=== PATIENT | female | born 1955 | race Caucasian/White ===

== ENCOUNTER 2023-12-27 06:20 | Observation (INO) | payer OTHER ==
[2023-12-27 06:58] LABS: Absolute Eosinophils 0.1 K/uL (0-0.5); Absolute Lymphocytes (CBC) 2.7 K/uL (0.7-4.9); Absolute Monocytes 0.9 K/uL (0.1-1.3); Absolute Neutrophil 5.5 K/uL (1.8-8.0); Basophils % 0.4 % (0-1.3); Eosinophils % 0.9 % (0-4.4); Hematocrit 37.6 % (36.0-45.0); Hemoglobin 12.7 g/dL (12.0-15.0); Lymphocytes % 29.6 % (15.3-44.8); MCH 29.4 pg (27.0-35.0); MCHC 33.7 g/dL (32.0-36.0); MCV 87.3 fL (80-100); MPV 8.7 fL (7.6-11.3); Monocytes % 9.5 % (3.3-12.3); Neutrophils % 59.6 % (41.7-73.7); Platelets 233 thou/uL (152-406); RBC Red Blood Cell Count 4.31 M/uL (3.86-4.86); Red Cell Distribution Width 14.2 % (12.1-15.2)
[2023-12-27 07:05] LABS: PT Prothrombin Time 10.4 SECONDS (9.4-12.5); Protime INR 0.93
[2023-12-27] MEDS ORDERED: CEFAZOLIN SODIUM 2 GM/VIAL ONE (07:14)
[2023-12-27] MEDS ORDERED: TDAP (DIPHTH,PERTUSS(ACELL),TET VAC) 0.5 ML VIAL IMVAC ONE (07:14)
[2023-12-27] MEDS ORDERED: NA CHLORIDE 0.9% 1,000 ML ONE (07:14)
[2023-12-27 07:18] LABS: ALT/SGPT 31 U/L (13-56); AST/SGOT 33 U/L (15-37); Albumin 3.8 g/dL (3.4-5.0); Albumin/Globulin Ratio 1.1 (1.1-1.8); Alkaline Phosphatase 101 U/L (45-117); Anion Gap 8.6 mEq/L (5.0-15.0); BUN Blood Urea Nitrogen 13 mg/dL (7-18); Bicarbonate 27 mEq/L (21-32); Bilirubin Direct < 0.2 mg/dL (0-0.2); Bilirubin Indirect, Calculated 0.2 mg/dL (0.2-0.8); Bilirubin Total 0.4 mg/dL (0.2-1.0); Globulin 3.5 g/dL (2.3-3.5); Glomerular Filtration Rate 79 ml/min (=/>90); Glucose Level 147 mg/dL (74-106); Lipase 59 U/L (13-75); Magnesium 2.1 mg/dL (1.6-2.4); NT PRO-BNP 87 pg/mL (<125); Potassium 3.6 mEq/L (3.5-5.1); Protein, Total 7.3 g/dL (6.4-8.2); Sodium Level 140 mEq/L (136-145); Troponin High Sensitivity 6.5 pg/mL (<58.9)
--- NOTE | 2023-12-27 07:36 | RAD REPORT ---
EXAMINATION: CT HEAD WITHOUT CONTRAST CT CERVICAL SPINE WITHOUT CONTRAST CLINICAL INDICATION: Head and neck injury status post fall. Head and neck pain TECHNIQUE: Axial CT images from the skull base to the vertex without intravenous contrast. Axial CT i mages through the cervical spine were obtained without intravenous contrast. Sagittal and coronal reformatted images were created from the data set. Coronal and sagittal reformatted images were creat ed from the data set. One or more of the following dose reduction techniques were used: Automated exposure control, adjustment of the mA and/or kV according to patient size, and/or iterative reconstr uction. Unless otherwise specified, incidental findings do not require dedicated imaging follow-up. [id number]. Comparison: none FINDINGS: Posterior scalp hematoma. Intracranial bleed not noted. Ventricles are normal in caliber. No significant hypodensity within the brain No extra-axial fluid collection. No fluid within the sinuses/mastoids No fracture or dislocation is seen involving the cervical spine. IMPRESSION: No acute intracranial abnormality noted A cervical fracture is not seen. 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
--- NOTE | 2023-12-27 07:46 | EDPHYS ---
Physician Documentation [facility] Name: Yissel Simon Age: 68 yrs Sex: Female : 1955 Arrival Date: 12/27/2023 Time: 06:20 Bed 7 Private MD: ED Physician Franck Corona HPI: 12/26 06:51 This 68 yrs old Female presents to ER via EMS with complaints of Fall Injury. erin 06:51 Details of fall: The patient fell from a height, down approximately 10 stairs. Onset: erin The symptoms/episode began/occurred this morning. Associated injuries: The patient sustained injury to the head, neck injury. Severity of symptoms: At their worst the symptoms were moderate, in the emergency department the symptoms are unchanged. The patient has not experienced similar symptoms in the past. Historical: - Allergies: 06:24 No Known Allergies; bm8 - Home Meds: 06:24 omeprazole 20 mg Oral capsule,delayed release (e.c.) 2 times per day [Active]; bm8 irbesartan-hydrochlorothiazide 150-12.5 mg oral tablet 1 tab daily [Active]; loratadine 10 mg oral Tablet,disintegrating 1 tab daily [Active]; clobetasol 0.05 % Topical cream 1 application daily [Active]; calcipotriene 0.005 % topical foam daily [Active]; simvastatin 40 mg Oral tablet 1 tab daily [Active]; - PMHx: 06:24 Hypertensive disorder; HLD; Gerd; bm8 - Immunization history:: Adult Immunizations up to date. - Infectious Disease History:: Denies. - Social history:: Smoking status: Patient denies any tobacco usage or history of. ROS: 06:52 Constitutional: Negative for fever, chills, and weight loss, Eyes: Negative for injury, erin pain, redness, and discharge, ENT: Negative for injury, pain, and discharge, Neck: Negative for injury, pain, and swelling, Respiratory: Negative for shortness of breath, cough, wheezing, and pleuritic chest pain, Abdomen/GI: Negative for abdominal pain, nausea, vomiting, diarrhea, and constipation, : Negative for injury, bleeding, discharge, and swelling, MS/Extremity: Negative for injury and deformity, Allergy/Immunology: Negative for hives, rash, and allergies, Endocrine: Negative for neck swelling, polydipsia, polyuria, polyphagia, and marked weight changes, Hematologic/Lymphatic: Negative for swollen nodes, abnormal bleeding, and unusual bruising, 06:52 Cardiovascular: Positive for chest pain, 06:52 Respiratory: Positive for shortness of breath, 06:52 Abdomen/GI: Negative for abdominal pain, 06:52 Neuro: Positive for dizziness, headache, large posterior scalp laceration, Exam: 06:52 Constitutional: This is a well developed, well nourished patient who is awake, alert, erin and in no acute distress. Eyes: Pupils equal round and reactive to light, extra-ocular motions intact. Lids and lashes normal. Conjunctiva and sclera are non-icteric and not injected. Cornea within normal limits. Periorbital areas with no swelling, redness, or edema. ENT: Nares patent. No nasal discharge, no septal abnormalities noted. Tympanic membranes are normal and external auditory canals are clear. Oropharynx with no redness, swelling, or masses, exudates, or evidence of obstruction, uvula midline. Mucous membranes moist. Neck: Trachea midline, no thyromegaly or masses palpated, and no cervical lymphadenopathy. Supple, full range of motion without nuchal rigidity, or vertebral point tenderness. No Meningismus. Chest/axilla: Normal chest wall appearance and motion. Nontender with no deformity. No lesions are appreciated. Cardiovascular: Regular rate and rhythm with a normal S1 and S2. No gallops, murmurs, or rubs. Normal PMI, no JVD. No pulse deficits. Respiratory: Lungs have equal breath sounds bilaterally, clear to auscultation and percussion. No rales, rhonchi or wheezes noted. No increased work of breathing, no retractions or nasal flaring. Abdomen/GI: Soft, non-tender, with normal bowel sounds. No distension or tympany. No guarding or rebound. No evidence of tenderness throughout. Back: No spinal tenderness. No costovertebral tenderness. Full range of motion. Neuro: Awake and alert, GCS 15, oriented to person, place, time, and situation. Cranial nerves II-XII grossly intact. Motor strength 5/5 in all extremities. Sensory grossly intact. Cerebellar exam normal. Normal gait. Psych: Awake, alert, with orientation to person, place and time. Behavior, mood, and affect are within normal limits. 06:52 Head/face: Noted is contusion, a laceration(s), that is deep, 12 cm(s), swelling, that is moderate, of the left side of the back of head, left occipital area, left base of the skull, right side of the back of head, right occipital area and right base of the skull, 06:52 Musculoskeletal/extremity: Extremities: noted in the right arm and left arm: contusion, decreased ROM, swelling, ROM: no acute changes, Circulation is intact in all extremities. Sensation intact. Compartment Syndrome exam of affected extremity: is normal. 06:58 ECG was reviewed by the Attending Physician. [facility] Vital Signs: 06:22 BP 130 / 80; Pulse 80; Resp 18; Temp 98.1; Pulse Ox 98% ; Weight 72.57 kg; Height 5 ft. bm8 5 in. ; Pain 5/10; 07:21 BP 153 / 92; Pulse 89; Resp 16; Pulse Ox 99% on R/A; hb 10:13 BP 131 / 83; Pulse 88; Resp 15; Pulse Ox 99% on R/A; hb 06:22 Body Mass Index 26.63 (72.57 kg, 165.1 cm) bm8 06:22 Pain Scale: Adult bm8 Theresa Coma Score: 06:33 Eye Response: spontaneous(4). Motor Response: obeys commands(6). Verbal Response: bm oriented(5). Total: 15. 06:55 Eye Response: spontaneous(4). Motor Response: obeys commands(6). Verbal Response: [facility] oriented(5). Total: 15. Trauma Score (Adult): 10:13 Eye Response: spontaneous(1); Verbal Response: oriented(1); Motor Response: obeys hb commands(2); Systolic BP: > 89 mm Hg(4); Respiratory Rate: 10 to 29 per min(4); Theresa Score: 15; Trauma Score: 12 Laceration: 07:30 Wound Repair of 12cm ( 4.7in ) subcutaneous laceration to right side of the back of [facility] head. Irregularly shaped.. Skin/tissue flap noted.. Distal neuro/vascular/tendon intact. Anesthesia: Local anesthetic administered with 12 mls of 1% lidocaine w/ Epi. Wound prep: Moderate cleansing with betadine by il, Copious irrigation. Skin closed with 15 KEKE Sadler using staple gun. Dressed with pressure dressing, non-adherent dressing. Patient tolerated well. MDM: 06:36 Medical Screening Exam initiated erin 06:55 Differential diagnosis: Contusion of Hematoma on Laceration of Intracranial bleed- [facility] subdural, epidural, intracerebral, Concussion without LOC. cerebral contusion, closed fracture, contusion. Differential diagnosis: abrasion, closed head injury, contusion, fracture, laceration, multiple trauma, sprain, strain. Data reviewed: vital signs, nurses notes, EMS record, lab test result(s), EKG, radiologic studies, CT scan, plain films. Consideration of Admission/Observation Escalation of care including admission/observation considered. Independent interpretation of the following test(s) in the Emergency Department EKG: See my EKG interpretation above. 12/26 06:39 Order name: Basic Metabolic Panel; Complete Time: 07:28 [facility] 12/26 06:39 Order name: CBC with Diff; Complete Time: 07:28 [facility] 12/26 06:39 Order name: LFT's; Complete Time: 07:28 [facility] 12/26 06:39 Order name: Magnesium; Complete Time: 07:28 [facility] 12/26 06:39 Order name: NT PRO-BNP; Complete Time: 07:28 [facility] 12/26 06:39 Order name: PT-INR; Complete Time: 07:28 [facility] 12/26 06:39 Order name: Troponin HS; Complete Time: 07:28 [facility] 12/26 06:39 Order name: Lipase; Complete Time: 07:28 [facility] 12/26 06:39 Order name: Urinalysis w/ reflexes [facility] 12/26 08:56 Order name: Hematocrit [facility] 12/26 08:56 Order name: Hemoglobin [facility] 12/26 09:46 Order name: CBC with Automated Diff [facility] 12/26 09:46 Order name: CBC with Automated Diff [facility] 12/26 09:46 Order name: Comprehensive Metabolic Panel [facility] 12/26 09:46 Order name: Comprehensive Metabolic Panel [facility] 12/26 06:39 Order name: XRAY Chest (1 view); Complete Time: 07:48 [facility] 12/26 06:39 Order name: CT Head C Spine; Complete Time: 07:39 [facility] 12/26 06:39 Order name: CT Chest, Abdomen, Pelvis - W/Contrast; Complete Time: 07:48 [facility] 12/26 06:39 Order name: Forearm Right XRAY; Complete Time: 07:48 [facility] 12/26 06:39 Order name: Elbow Left 3 View XRAY 12/26 07:53 Order name: INCENTIVE SPIROMETRY 12/26 06:39 Order name: EKG; Complete Time: 06:39 [facility] 12/26 09:46 Order name: CONS Physician Consult EDMS 12/26 06:39 Order name: Cardiac monitoring; Complete Time: 06:46 12/26 06:39 Order name: EKG - Nurse/Tech; Complete Time: 06:46 [facility] 12/26 06:39 Order name: IV Saline Lock; Complete Time: 06:44 [facility] 12/26 06:39 Order name: Labs collected and sent; Complete Time: 06:44 [facility] 12/26 06:39 Order name: O2 Per Protocol; Complete Time: 06:44 [facility] 12/26 06:39 Order name: O2 Sat Monitoring; Complete Time: 06:44 [facility] 12/26 06:39 Order name: Dressing - Wound; Complete Time: 06:42 [facility] 12/26 06:39 Order name: Gloves, Sterile; Complete Time: 06:42 [facility] 12/26 06:39 Order name: Setup Suture Tray; Complete Time: 06:42 [facility] 12/26 06:39 Order name: Cervical Collar; Complete Time: 06:46 [facility] 12/26 07:53 Order name: Wound Care; Complete Time: 08:10 [facility] 12/26 07:53 Order name: Ice pack; Complete Time: 08:10 [facility] EC:58 Rate is 85 beats/min. Rhythm is regular. QRS [place] is Normal. SC interval is normal. QRS erin interval is normal. QT interval is normal. No Q waves. T waves are Normal. No ST changes noted. Clinical impression: Normal ECG and No evidence of ischemia. Interpreted by me. Reviewed by me. Administered Medications: 06:42 Drug: Lidocaine-Epinephrine Infiltration -1%: (1:100,000) 10 ml 20 ml Infiltration lg3 once; to bedside Volume: 20 ml; Route: Infiltration; 07:15 Drug: Boostrix Tdap IM 0.5 ml IM once; as a single dose Route: IM; Site: right deltoid; bp 15:45 Follow up: Response: No adverse reaction bp 07:15 Drug: ceFAZolin IVPB 2 grams IVPB once over 30 mins; (mix in 100 mL NS) Route: IVPB; bp Infused Over: 30 mins; Site: right antecubital; 15:45 Follow up: IV Status: Completed infusion bp 07:15 Drug: NS 0.9% IV 1000 ml IV at 1000 ml once; to be given as a bolus over 60 minutes bp Route: IV; Rate: 1000 ml; Site: right antecubital; 15:45 Follow up: IV Status: Completed infusion; IV Intake: 1000ml bp 08:09 Drug: fentaNYL (PF) IVP 25 mcg IVP once Route: IVP; Site: right antecubital; bp 15:45 Follow up: Response: No adverse reaction bp 08:09 Drug: Ondansetron IVP 4 mg IVP once; over 2 minutes Route: IVP; Site: right antecubital;bp 15:45 Follow up: Response: No adverse reaction bp 08:10 Drug: Mupirocin Topical Ointment 2 % 1 application Topical once Route: Topical; Site: bp affected area; 08:10 Drug: fentaNYL (PF) IVP 25 mcg IVP once Route: IVP; Site: right antecubital; bp 15:45 Follow up: Response: No adverse reaction bp Disposition Summary: 12/27/23 07:45 Hospitalization Ordered Notes: Hospitalization Status: Inpatient Admission erin Provider: Jc Malik cha Condition: Fair erin Problem: new erin Symptoms: have improved erin Bed/Room Type: Standard erin Location: Telemetry/MedSurg (Inpatient)(12/27/23 15:23) bd Room Assignment: 222(12/27/23 15:23) bd Diagnosis - Fall (on) (from) other stairs and steps - 10 erin - Laceration without foreign body of other part of head - SCALP , 12 CM erin - Contusion of forearm - HEMATOMA erin - Contusion of left elbow erin - Strain of muscle and tendon of front wall of thorax erin - Strain of muscle and tendon of back wall of thorax erin - Other injury of muscle and tendon of back wall of thorax erin - Low back pain erin Forms: - Medication Reconciliation Form erin - SBAR form erin - Leadership Thank You Letter erin Signatures: Dispatcher [employer] EDMirian Gaffney Corey, MD MD cha Baxter, Heather, RN RN Nino Andre RN RN bp Able, Lacie, RN RN 3 Joshua Leiva, RN RN bm8 Corrections: (The following items were deleted from the chart) 06:40 06:39 BASIC METABOLIC PANEL+C.LAB.BRZ ordered. EDMS EDMS 06:40 06:39 CBC+H.LAB.BRZ ordered. EDMS EDMS 06:40 06:39 HEPATIC FUNCTION+C.LAB.BRZ ordered. EDMS EDMS 06:40 06:39 MAGNESIUM+C.LAB.BRZ ordered. EDMS EDMS 06:40 06:39 PROBNP+C.LAB.BRZ ordered. EDMS EDMS 06:40 06:39 PROTIME (+INR)+COAG.LAB.BRZ ordered. EDMS EDMS 06:40 06:39 Troponin High Sensitivity+C.LAB.BRZ ordered. EDMS EDMS 06:40 06:39 LIPASE+C.LAB.BRZ ordered. EDMS EDMS 06:40 06:39 Urinalysis+U.LAB.BRZ ordered. EDMS EDMS 10:14 07:45 Telemetry/MedSurg (observation) erin hb 10:14 07:45 erin hb 15:23 10:14 [facility] ER HOLD hb bd 15:23 10:14 ERHOLD- hb bd
--- NOTE | 2023-12-27 07:46 | RAD REPORT ---
EXAM: CT CHEST, ABDOMEN AND PELVIS WITHOUT CONTRAST CLINICAL INDICATION: Chest and abdominal pain status post fall TECHNIQUE: CT chest, abdomen and pelvis was performed, with 100 cc Isovue-300 IV contrast, as per de partment protocol. Axial, sagittal and coronal reconstructions were obtained. One or more of the following dose reduction techniques were used: Automated exposure control, adjustment of the mA and/o r kV according to the patient size, and/or iterative reconstruction. Unless otherwise specified, incidental findings do not require dedicated imaging follow-up. [id number]. Oral contrast not given. This limits evaluation of the bowel. COMPARISON: None FINDINGS: A pulmonary contusion not seen. No mediastinal hematoma noted No pleural effusion.. No pericardial effusion Old fracture sternum. Liver, spleen, pancreas, adrenals, kidneys and bladder do not demonstrate any acute traumatic injury. There is no evidence of diverticulitis Ill-defined hematoma subcutaneous tissues right flank. Small areas of increased density indicate acti ve bleeding. IMPRESSION: Ill-defined hematoma subcutaneous tissues right flank. Small areas of increased density indicate acti ve bleeding.
--- NOTE | 2023-12-27 07:46 | RAD REPORT ---
Procedure: Chest Single View HISTORY: Chest pain COMPARISON: none FINDINGS: The lungs appear clear of acute infiltrate. No significant pleural effusion noted. The heart is normal size. IMPRESSION: No acute abnormality is displayed.
--- NOTE | 2023-12-27 07:46 | ER ---
Nurse's Notes [facility] Name: Yissel Simon Age: 68 yrs Sex: Female : 1955 Arrival Date: 12/27/2023 Time: 06:20 Bed 7 Private MD: Diagnosis: Fall (on) (from) other stairs and steps-10;Laceration without foreign body of other part of head-SCALP , 12 CM;Contusion of forearm-HEMATOMA;Contusion of left elbow;Strain of muscle and tendon of front wall of thorax;Strain of muscle and tendon of back wall of thorax;Other injury of muscle and tendon of back wall of thorax;Low back pain Presentation: 12/26 06:22 Chief complaint: Patient states: I fell/ slid down the stairs and hit my head on the bm8 way down. My head neck back and chest hurt. Coronavirus screen: At this time, the client does not indicate any symptoms associated with coronavirus-19. Ebola Screen: Patient negative for fever greater than or equal to 101.5 degrees Fahrenheit, and additional compatible Ebola Virus Disease symptoms Patient denies exposure to infectious person. Patient denies travel to an Ebola-affected area in the 21 days before illness onset. No symptoms or risks identified at this time. Initial Sepsis Screen: Does the patient meet any 2 criteria? No. Patient's initial sepsis screen is negative. Does the patient have a suspected source of infection? No. Patient's initial sepsis screen is negative. Risk Assessment: Do you want to hurt yourself or someone else? Patient reports no desire to harm self or others. Onset of symptoms was December 27, 2023 at 05:30. Care prior to arrival: head wound dressed with kerlix. 06:22 Method Of Arrival: EMS: [facility] bm8 06:22 Acuity: HENRY 3 bm8 Triage Assessment: 06:24 General: Appears in no apparent distress. uncomfortable, Behavior is calm, cooperative, bm8 appropriate for age. Pain: Complains of pain in right parietal area, left trapezius, right trapezius, chest, right arm and left arm Pain currently is 5 out of 10 on a pain scale. Quality of pain is described as crampy. EENT: No deficits noted. No signs and/or symptoms were reported regarding the EENT system. Neuro: No deficits noted. Level of Consciousness is awake, alert, obeys commands, Oriented to person, place, time, situation, Appropriate for age. Cardiovascular: Reports chest pain, Heart tones S1 S2 present Capillary refill < 3 seconds in bilateral fingers Patient's skin is warm and dry. Cardiovascular: tender to touch. Respiratory: Airway is patent Trachea midline Respiratory effort is even, unlabored, Respiratory pattern is regular, symmetrical, Breath sounds are clear bilaterally. GI: No signs and/or symptoms were reported involving the gastrointestinal system. : No signs and/or symptoms were reported regarding the genitourinary system. Derm: Wound noted right parietal area Wound is pt has lac to back of head, hematomas to left elbow and right wrist. Reports pain that is 5 out of 10 on a pain scale. Historical: - Allergies: 06:24 No Known Allergies; bm8 - Home Meds: 06:24 omeprazole 20 mg Oral capsule,delayed release (e.c.) 2 times per day [Active]; bm8 irbesartan-hydrochlorothiazide 150-12.5 mg oral tablet 1 tab daily [Active]; loratadine 10 mg oral Tablet,disintegrating 1 tab daily [Active]; clobetasol 0.05 % Topical cream 1 application daily [Active]; calcipotriene 0.005 % topical foam daily [Active]; simvastatin 40 mg Oral tablet 1 tab daily [Active]; - PMHx: 06:24 Hypertensive disorder; HLD; Gerd; bm8 - Immunization history:: Adult Immunizations up to date. - Infectious Disease History:: Denies. - Social history:: Smoking status: Patient denies any tobacco usage or history of. Screenin:33 [facility] [place] ED Fall Risk Assessment (Adult) History of falling in the last 3 months, bm8 including since admission Yes- single mechanical fall (1 pt) Confusion or Disorientation No (0 pts) Intoxicated or Sedated No (0 pts) Impaired Gait No (0 pts) Mobility Assist Device Used No (0 pt) Altered Elimination No (0 pt) Score/Fall Risk Level 0 - 2 = Low Risk Oriented to surroundings, Maintained a safe environment, Educated pt \T\ family on fall prevention, incl call for assistance when getting out of bed, Assessed \T\ reinforced patient's understanding of fall precautions, Hourly rounding (assess needs \T\ fall precautionary measures) done, Used ambulatory aids as needed (educated on \T\ assisted with), Used gait belt as appropriate. Abuse screen: Denies threats or abuse. Nutritional screening: No deficits noted. Tuberculosis screening: No symptoms or risk factors identified. Vital Signs: 06:22 BP 130 / 80; Pulse 80; Resp 18; Temp 98.1; Pulse Ox 98% ; Weight 72.57 kg; Height 5 ft. bm8 5 in. ; Pain 5/10; 07:21 BP 153 / 92; Pulse 89; Resp 16; Pulse Ox 99% on R/A; hb 10:13 BP 131 / 83; Pulse 88; Resp 15; Pulse Ox 99% on R/A; hb 06:22 Body Mass Index 26.63 (72.57 kg, 165.1 cm) bm8 06:22 Pain Scale: Adult bm8 [place] Coma Score: 06:33 Eye Response: spontaneous(4). Motor Response: obeys commands(6). Verbal Response: bm8 oriented(5). Total: 15. 06:55 Eye Response: spontaneous(4). Motor Response: obeys commands(6). Verbal Response: erin oriented(5). Total: 15. Trauma Score (Adult): 10:13 Eye Response: spontaneous(1); Verbal Response: oriented(1); Motor Response: obeys hb commands(2); Systolic BP: > 89 mm Hg(4); Respiratory Rate: 10 to 29 per min(4); Theresa Score: 15; Trauma Score: 12 ED Course: 06:21 Patient arrived in ED. bm8 06:24 Triage completed. bm8 06:24 Arm band placed on right wrist. bm8 06:33 Patient has correct armband on for positive identification. Bed in low position. Call bm8 light in reach. Adult w/ patient. Client placed on continuous cardiac and pulse oximetry monitoring. NIBP monitoring applied. Pulse ox on. NIBP on. Door closed. Noise minimized. Warm blanket given. Pillow given. Verbal reassurance given. Head of bed elevated. 06:33 Assist provider with laceration repair on back of head that was between 7.6 to 12.5 cm bm8 using blank. Set up tray. Performed by Franck Corona MD Patient tolerated well. Patient maintains SpO2 saturation greater than 95% on room air. 06:36 Franck Corona MD is Attending Physician. erin 06:41 Inserted saline lock: 20 gauge in right antecubital area, using aseptic technique. lg3 Blood collected. 06:44 Lipase Sent. lg3 06:44 Basic Metabolic Panel Sent. lg3 06:44 CBC with Diff Sent. lg3 06:44 LFT's Sent. lg3 06:44 Magnesium Sent. lg3 06:44 NT PRO-BNP Sent. lg3 06:44 PT-INR Sent. lg3 06:44 Troponin HS Sent. lg3 06:46 Yola cervical collar applied and checked by physician. lg3 06:50 EKG done, by ED staff, reviewed by Franck Corona MD. vk 06:59 XRAY Chest (1 view) In Process Unspecified. EDMS 07:04 Nino Andre, RN is Primary Nurse. bp 07:08 CT Head C Spine In Process Unspecified. EDMS 07:09 CT Chest, Abdomen, Pelvis - W/Contrast In Process Unspecified. EDMS 07:21 Forearm Right XRAY In Process Unspecified. EDMS 07:21 Elbow Left 3 View XRAY In Process Unspecified. EDMS 07:41 Jc Malik MD is Hospitalizing Provider. erin 10:13 Patient admitted, IV remains in place. hb Administered Medications: 06:42 Drug: Lidocaine-Epinephrine Infiltration -1%: (1:100,000) 10 ml 20 ml Infiltration lg3 once; to bedside Volume: 20 ml; Route: Infiltration; 07:15 Drug: Boostrix Tdap IM 0.5 ml IM once; as a single dose Route: IM; Site: right deltoid; bp 15:45 Follow up: Response: No adverse reaction bp 07:15 Drug: ceFAZolin IVPB 2 grams IVPB once over 30 mins; (mix in 100 mL NS) Route: IVPB; bp Infused Over: 30 mins; Site: right antecubital; 15:45 Follow up: IV Status: Completed infusion bp 07:15 Drug: NS 0.9% IV 1000 ml IV at 1000 ml once; to be given as a bolus over 60 minutes bp Route: IV; Rate: 1000 ml; Site: right antecubital; 15:45 Follow up: IV Status: Completed infusion; IV Intake: 1000ml bp 08:09 Drug: fentaNYL (PF) IVP 25 mcg IVP once Route: IVP; Site: right antecubital; bp 15:45 Follow up: Response: No adverse reaction bp 08:09 Drug: Ondansetron IVP 4 mg IVP once; over 2 minutes Route: IVP; Site: right antecubital;bp 15:45 Follow up: Response: No adverse reaction bp 08:10 Drug: Mupirocin Topical Ointment 2 % 1 application Topical once Route: Topical; Site: bp affected area; 08:10 Drug: fentaNYL (PF) IVP 25 mcg IVP once Route: IVP; Site: right antecubital; bp 15:45 Follow up: Response: No adverse reaction bp Intake: 15:45 IV: 1000ml; Total: 1000ml. bp Outcome: 07:45 Decision to Hospitalize by Provider. erin 10:13 Admitted to ER Hold. Please see [facility] for further documentation. hb 10:13 Condition: stable 10:13 admission Patient's length of stay extended due to 16:54 Patient left the ED. bp Signatures: Dispatcher [employer] EDMS Franck Corona MD MD cha Baxter, Heather, RN RN Nino Andre, RN RN Radha Jackson RN RN lg3 Gayle Meraz Brad, RN RN bm8
--- NOTE | 2023-12-27 07:47 | RAD REPORT ---
Exam:Elbow Left 3 View HISTORY: Left elbow pain FINDINGS: No fracture or dislocation seen
--- NOTE | 2023-12-27 07:47 | RAD REPORT ---
Exam:Forearm Right Clinical history: Right forearm pain Findings: No fracture or dislocation seen.
[2023-12-27] MEDS ORDERED: MUPIROCIN 2% OINT 22GM TUBE TOP ONE (08:02)
[2023-12-27] MEDS ORDERED: ONDANSETRON 4 MG/2 ML VIAL ONE ×2 (08:02→12:23)
[2023-12-27] MEDS ORDERED: FENTANYL CITR 100 MCG/2 ML ONE (08:03)
[2023-12-27 08:54] LABS: Specific Gravity > 1.030 (1.005-1.030); Urine Bilirubin NEGATIVE (Negative); Urine Blood Negative (Negative); Urine Clarity Clear (Clear); Urine Color Colorless (Yellow); Urine Glucose NEGATIVE (Negative); Urine Ketones NEGATIVE (Negative); Urine Microscopic Reflex YN NO UMIC; Urine Nitrite NEGATIVE (Negative); Urine Protein NEGATIVE (Negative); Urine Urobilinogen Normal (Normal); Urine pH 7.5 (5.0-7.0)
--- NOTE | 2023-12-27 09:01 | P.HP ---
Certification for Inpatient Patient admitted to: Inpatient With expected LOS: >2 Midnights Patient will require the following post-hospital care: None Practitioner: I am a practitioner with admitting privileges, knowledge of patient current condition, hospital course, and medical plan of care. Services: Services provided to patient in accordance with Admission requirements found in Title 42 Section 412.3 of the Code of Federal Regulations Patient History Date of Service: 12/27/23 Reason for admission: Status post fall History of Present Illness: Patient is a 68-year-old female who is in town visiting her daughter. She did not have a lot of medical issues but she came in after falling down the stairs. She states that she was with her daughter and she was going to the restroom this morning. When she was going back to the bedroom she accidentally hit the side of the staircase and she ended up falling down the stairs. There was a turn which she ended up falling all the way down to the floor from the top staircase. She was brought into the emergency room where CT traumagram revealed no significant abnormal findings except for some bleeding into the right buttocks flank region. No visible signs of bruising or bleeding. CT scan findings indicated that there was a region of increased bleeding. At this time we will consult general surgery and get their input and repeat H&H. If labs are stable, and general surgeon agreeable with and will admit her for observation or inpatient hospitalization. Allergies No Known Allergies Allergy (Unverified 12/27/23 08:47) - Past Medical/Surgical History -: Iron deficiency anemia Past Surgical History: Patient denies surgical history - Family History Father Family History: Reviewed- Non-Contributory - Social History Smoking Status: Former smoker Alcohol use: No CD- Drugs: No Review of Systems 10-point ROS is otherwise unremarkable Physical Examination - Vital Signs Temperature: 98 F Blood Pressure: 140/80 Pulse: 80 Respirations: 18 Pulse Ox (%): 95 - Physical Exam General: Alert, In no apparent distress, Oriented x3 HEENT: Atraumatic, PERRLA, Mucous membr. moist/pink, EOMI, Sclerae nonicteric Neck: Supple, 2+ carotid pulse no bruit, No LAD, Without JVD or thyroid abnormality Respiratory: Clear to auscultation bilaterally, Normal air movement Cardiovascular: Regular rate/rhythm, Normal S1 S2 Gastrointestinal: Normal bowel sounds, Soft and benign, Non-distended, No tenderness Musculoskeletal: No clubbing, No swelling, No tenderness Integumentary: No rashes Neurological: Normal gait, Normal speech, Normal strength at 5/5 x4 extr, Normal tone, Sensation intact, Cranial nerves 3-12 intact, Normal affect Lymphatics: No axilla or inguinal lymphadenopathy - Studies Laboratory Data (last 24 hrs) 12/27/23 12/27/23 12/27/23 06:42 06:42 06:42 WBC 9.20 Hgb 12.7 Hct 37.6 Plt Count 233 PT 10.4 INR 0.93 Sodium 140 Potassium 3.6 BUN 13 Creatinine 0.80 Glucose 147 H Magnesium 2.1 Total Bilirubin 0.4 AST 33 ALT 31 Alkaline Phosphatase 101 Lipase 59 Assessment & Plan - Problems (Diagnosis) (1) Status post fall Current Visit: Yes Status: Acute (2) Hematoma Current Visit: Yes Status: Acute - Plan Plan: 1. Continue with IV hydration 2. Continue with monitoring neurostatus 3. Continue with pain control 4. Will await surgery input but at this time will start clear liquid diet once they evaluate the patient and no surgical need 5. Surgery consultation 6. Serial H&H, 7. GI and DVT prophylaxis Discharge Plan: Home Plan to discharge in: Greater than 2 days - Advance Directives Does patient have a Living Will: No Does patient have a Durable POA for Healthcare: No - Code Status/Comfort Care Code Status Assessed: Yes Code Status: Full Code Critical Care: Yes Time Spent Managing PTS Care (In Minutes): 55
[2023-12-27 09:50] LABS: Hemoglobin 11.2 g/dL (12.0-15.0)
[2023-12-27] MEDS: NA CHLORIDE 0.9% 1,000 ML IV SCH (10:00)
[2023-12-27 10:19] VITALS: BMI 26.6
--- NOTE | 2023-12-27 12:09 | CON ---
Date of Consultation: 12/27/2023 Reason For Consultation: Right flank injury. History Of Present Illness: The patient is a 68-year-old female who was walking on the stairs, lost her balance, misstepped, and fell down the stairs, sliding down on her backside. She did not have an y loss of consciousness. She has no difficulty breathing. No abdominal pain. Full range of motion with her upper and lower extremity. Mild discomfort on the chest and back region. She had a CT tila gram done which showed a bruising with the small blood vessel showing extravasation indicating possib le active bleeding. The patient denies any sore throat, runny nose, cough, headaches, dizziness, daniel st pain, except for the bruising, fevers, or chills. Review of Systems: Otherwise, unremarkable. Past Medical History: Anemia. Past Surgical History: Negative. Allergies: NO ALLERGIES. Social History: Patient used to smoke, does not anymore. Does not drink alcohol. Family History: Unremarkable. Physical Examination: Vital Signs: Stable. She is currently afebrile. General: She is awake and alert. Head and Neck. Trachea is midline. There is no JVD. Neck is nontender. Mild tenderness in the rig ht flank, upper buttock region. The arms have some bruising as well. There are no open wounds. Chest: Clear. Heart: S1, S2. Abdomen: Soft, nondistended, nontender. Positive bowel sounds. Pelvic: Stable, nontender. Extremities: With full range of motion and nontender. Neuro: Nonfocal. Imaging: The x-rays and the CT scan all reviewed. Essentially the only findings are ill-defined hem atoma in subcutaneous tissue in the right flank. Small areas of increased density indicate active bl eeding. No other findings noted. Laboratory Data: Reviewed. Initial hemoglobin was 12.7 and . Followup H and H is 11.2 an d 33.0. INR is 0.93. Chemistry reviewed, essentially unremarkable. Glucose is slightly high. Assessment: 68-year-old female, status post fall with a right flank bruise/hematoma. Recommendation: Comfort measures, pain management, ice pack, follow H and H, serial exams, and likel y discharge in 24-48 hours. No need for any intervention at this time. Plan of care discussed with the patient, family, and Dr. Malik. LIANET/ANJELICA Voice ID: [id number] Report ID: [id number]
[2023-12-27] MEDS ORDERED: MORPHINE 2 MG/ML SYR ONE (12:24)
[2023-12-27] MEDS: ONDANSETRON 4 MG/2 ML VIAL IV PRN (12:29)
[2023-12-27] MEDS: MORPHINE 2 MG/ML SYR IV PRN (12:29)
[2023-12-27 18:08] VITALS: O2SAT 99
[2023-12-28 04:41] LABS: Absolute Lymphocytes (CBC) 1.6 K/uL (0.7-4.9); Absolute Neutrophil 4.2 K/uL (1.8-8.0); Basophils % 0.3 % (0-1.3); Eosinophils % 0.5 % (0-4.4); Hematocrit 29.4 % (36.0-45.0); Hemoglobin 9.8 g/dL (12.0-15.0); Lymphocytes % 23.7 % (15.3-44.8); MCHC 33.2 g/dL (32.0-36.0); MCV 87.5 fL (80-100); Neutrophils % 61.5 % (41.7-73.7); Platelets 173 thou/uL (152-406); RBC Red Blood Cell Count 3.36 M/uL (3.86-4.86); Red Cell Distribution Width 14.6 % (12.1-15.2)
[2023-12-28 04:49] LABS: Albumin 3.1 g/dL (3.4-5.0); Anion Gap 8.3 mEq/L (5.0-15.0); Bilirubin Total 0.6 mg/dL (0.2-1.0); Potassium 3.3 mEq/L (3.5-5.1); Protein, Total 6.1 g/dL (6.4-8.2)
--- NOTE | 2023-12-28 09:40 | P.PN ---
Date of Service: 12/28/23 subjective admitted for falls, educated on fall precautions, PT to eval Review of Systems 10-point ROS is otherwise unremarkable Physical Examination - Vital Signs reviewed - Physical Exam General: Alert, In no apparent distress, Oriented x3 HEENT: Atraumatic, PERRLA, Mucous membr. moist/pink, EOMI, Sclerae nonicteric Neck: Supple, 2+ carotid pulse no bruit, No LAD, Without JVD or thyroid abnormality Respiratory: Clear to auscultation bilaterally, Normal air movement Cardiovascular: Regular rate/rhythm, Normal S1 S2 Gastrointestinal: Normal bowel sounds, Soft and benign, Non-distended, No tenderness Musculoskeletal: No clubbing, No swelling, No tenderness, generalized weakness, Integumentary: No rashes, right flank hematoma Neurological: Normal gait, Normal speech, Normal strength at 5/5 x4 extr, Normal tone, Sensation intact, Lymphatics: No axilla or inguinal lymphadenopathy Assessment & Plan - Problems (Diagnosis) Acute traumatic fall initial visit Fall precautions, PT eval Acute hematoma Trend H&H, monitor for bleeding Acute hypokalemia Trend electrolytes replace as needed 1. Continue with IV hydration 2. Continue with monitoring neurostatus 3. Continue with pain control 4. Will await surgery input but at this time will start clear liquid diet once they evaluate the patient and no surgical need 5. Surgery consultation 6. Serial H&H, type and screen 7. GI and DVT prophylaxis Discharge Plan: Home Plan to discharge in: Greater than 2 days - Advance Directives Does patient have a Living Will: No Does patient have a Durable POA for Healthcare: No - Code Status/Comfort Care Code Status Assessed: Yes Code Status: Full Code Critical Care: Yes Time Spent Managing PTS Care (In Minutes): 30
[2023-12-28] MEDS: POTASSIUM 25 MEQ EFFERV TAB PO ONE (09:52)
[2023-12-28 10:18] LABS: Albumin 3.3 g/dL (3.4-5.0); Anion Gap 5.5 mEq/L (5.0-15.0); Phosphorus 2.7 mg/dL (2.5-4.9); Potassium 3.5 mEq/L (3.5-5.1)
[2023-12-28] MEDS: ACETAMINOPHEN 500 MG TAB PO PRN (11:30)
--- NOTE | 2023-12-28 11:36 | PN ---
Date of Progress Note: 12/28/2023 Subjective: The patient is awake, alert, feels better. Pain is mostly in the chest. There is no in crease in swelling or bruising in the right flank and buttock region. Objective: Vital Signs: Stable. She is afebrile. Extremities: There is no increase in edema, swelling, or bruising noted. Chest: Clear. Laboratory Data: Hemoglobin is 9.8. Her troponin was normal. It was checked yesterday. Assessment: Status post fall with soft tissue injury to the right flank and buttocks region, stable. Recommendations: Perhaps check another H and H today. If stable, patient can be discharged home. P alexandra of care discussed with the family, patient, and Dr. Malik. LIANET/ANJELICA Voice ID: [id number] Report ID: [id number]
[2023-12-28 11:39] LABS: Absolute Lymphocytes (CBC) 1.6 K/uL (0.7-4.9); Absolute Neutrophil 4.6 K/uL (1.8-8.0); Basophils % 0.3 % (0-1.3); Eosinophils % 0.2 % (0-4.4); Hematocrit 30.2 % (36.0-45.0); Hemoglobin 10.2 g/dL (12.0-15.0); Lymphocytes % 22.6 % (15.3-44.8); MCH 29.4 pg (27.0-35.0); MCHC 33.8 g/dL (32.0-36.0); MPV 8.7 fL (7.6-11.3); Monocytes % 13.3 % (3.3-12.3); Neutrophils % 63.6 % (41.7-73.7); Platelets 185 thou/uL (152-406); RBC Red Blood Cell Count 3.47 M/uL (3.86-4.86); Red Cell Distribution Width 14.6 % (12.1-15.2)
[2023-12-28 16:57] VITALS: BP 145/84; TEMP 97
--- NOTE | 2023-12-28 17:19 | RAD REPORT ---
EXAMINATION: ONE VIEW CHEST XR CLINICAL INDICATION: pneumonia TECHNIQUE: Frontal chest projection is submitted. Examination is limited by patient positioning and t echnique. COMPARISON: 12/27/2023 FINDINGS: The lungs are well inflated and clear. The heart is normal in size. No displaced fractures identified . IMPRESSION: No acute intrathoracic abnormalities.
--- NOTE | 2023-12-29 11:59 | EKG ---
Test Date: 2023-12-27 Test Time: 06:50:44 Research Chemist: MAVIS MEASUREMENT RESULTS: Intervals: Rate: 85 ND: 144 QRSD: 84 QT: 384 QTc: 456 [place]: P: 46 ND: 144 QRS: 8 T: 21 INTERPRETIVE STATEMENTS: Normal sinus rhythm Normal ECG No previous ECG available for comparison Electronically Signed On 12-29-23 11:53:39 CDT by Gilbert Gomes
== END 2023-12-28 19:42 | disposition home or self-care (01) ==
LOC: ER 06:20 → ERHOLD 09:43 → 2ND 16:21
PROVIDERS: ADMIT Hospitalist; ATTEND Hospitalist
PROC: 0JQ03ZZ Repair Scalp Subcutaneous Tissue and Fascia, Percutaneous Approach (ICD-10-PCS; principal; 2023-12-27)
DX: S01.81XA Laceration without foreign body of other part of head, initial encounter (principal); S39.82XA Other specified injuries of lower back, initial encounter; S29.9XXA Unspecified injury of thorax, initial encounter; S50.12XA Contusion of left forearm, initial encounter; S29.012A Strain of muscle and tendon of back wall of thorax, initial encounter; S29.011A Strain of muscle and tendon of front wall of thorax, initial encounter; M54.50 Low back pain, unspecified; I10 Essential (primary) hypertension; E78.5 Hyperlipidemia, unspecified; E87.6 Hypokalemia; W10.8XXA Fall (on) (from) other stairs and steps, initial encounter; Y93.9 Activity, unspecified; Y92.018 Other place in single-family (private) house as the place of occurrence of the external cause
CPT/HCPCS: 93005; 85025 ×3; 80048; 36415; 86900; 83735; 86850; 85610; 86901; 80076; 80069; 85018; 85014; 81003; 84484; 83690; 80053; 83880; 70450; 72125; 71260; 74177; 71045 ×2; 73080; 73090; 97161; 12004; Q9967; J3010; J2270 ×3; J2405 ×3; J7030 ×3; 96365; 96366; 96372; 96375; 99285; G0378